=== PATIENT | male | born 1965 | race Caucasian/White ===

== ENCOUNTER → 2017-02-11 | Day surgery (SDC) | payer OTHER ==
[~2017-02-11] MED LIST: ASPI-482 PO; CELE200C PO; GABA-586 PO; IV RINGERS,LACTATED 1000ML 1,000 ML IV SCH; LIDOCAINE 2% PF Vial for OR 5 ML VIAL. ONE; METO25TA9 PO; MULT-246 PO; OMEG500C PO; PROPOFOL 40 ML IV ONE; PYRI50CA PO; SIMV20TA3 PO
[2017-02-11 12:35] VITALS: BP 111/64
--- NOTE | 2017-02-12 13:46 | PATHOLOGY ---
PATHOLOGY REPORT * * * * * * * * FINAL DIAGNOSIS: Colon biopsy, sigmoid polyp: - Hyperplastic polyp. COMMENT: There are no adenomatous changes or evidence of malignancy. (JPM:; d/t: 02/12/17) REPORT ELECTRONICALLY SIGNED BY: Joaquín Nowak M.D. DATE/TIME: 02/12/2017 13:45 * * * * * * * * GROSS PATHOLOGY: Received in formalin labeled "Abdullahi Monroy and sigmoid polyp," is a segment of crabtree soft tissue measuring 0.8 cm in maximum dimension. The specimen is submitted entirely in cassette A1. (TTL; 02/11/2017) INITIAL CPT CODE(S): A; 24024 Professional services performed by [facility] [place] [address] Technical services performed by [facility] at [address] [place] [address]. Spencer Huddy, fax: SPECIMEN(S) RECEIVED: A.Sigmoid polyp CLINICAL HISTORY: Screening PATIENT: ABDULLAHI MONROY /AGE: 1109/25/1965 (Age: 51) PATIENT #: [id number] ALT CASE #: SPECIMEN COLLECTION DATE: 02/11/2017 SPECIMEN RECEIVED DATE: 02/11/2017 [facility] - [address] [place] [address] - PHONE: [phone] * * * END OF REPORT * * *
== END | disposition home or self-care (01) ==
LOC: ENDOS 11:24
PROVIDERS: ATTEND Internal Medicine Gastroenterology
DX: Z12.11 Encounter for screening for malignant neoplasm of colon (principal); K64.0 First degree hemorrhoids; D12.5 Benign neoplasm of sigmoid colon; E78.00 Pure hypercholesterolemia, unspecified; M19.90 Unspecified osteoarthritis, unspecified site; Z80.0 Family history of malignant neoplasm of digestive organs; Z83.3 Family history of diabetes mellitus; Z72.89 Other problems related to lifestyle; Z87.891 Personal history of nicotine dependence; Z79.82 Long term (current) use of aspirin
CPT/HCPCS: 45385; J2704; 88305